=== PATIENT | male | born 1950 | race Caucasian/White ===

== ENCOUNTER 2021-12-10 13:00 | Emergency (ER) | payer MEDICARE, SELFPAY ==
[2021-12-10] VITALS (20 sets, daily range): BP systolic 183–224; BP diastolic 77–96; PULSE 42–57; RESP 13–25; TEMP 36.5; O2SAT 90–98
--- NOTE | 2021-12-10 13:15 | RT.EKG_ITS ---
APPROVED REPORT Exam: Resting ECG Reason for Exam: Burping, R/O CAD Patient Location: E HR:44 bpm ECG Measurements Heart Rate 44 AXIS OK 151 P -14 QRSd 113 QRS 34 QT 510 T 18 QTc 437 Conclusion Sinus bradycardia...rate< [address] elevation, anterior leads...ST >0.15mV in V1-V4 no STEMI, non-diagnostic EKG I have reviewed and interpreted ECG and agree with software generated interpretation.
--- NOTE | 2021-12-10 13:18 | ED.GENADUL_ITS ---
Discharge Plan Disposition Patient Disposition: HOME Condition: Stable Discharge Details Clinical Impression: Abdominal pain Primary Care Provider: Maximiliano Enamorado ED Provider: Kori Cadet Home Meds and New Rx's Prescriptions: Continued sertraline 100 mg tablet 100 mg PO DAILY RF: 0 acebutolol 200 mg capsule 400 mg PO DAILY RF: 0 lisinopril 40 mg tablet 40 mg PO DAILY RF: 0 tamsulosin 0.4 mg capsule 0.4 mg PO DAILY RF: 0 fluticasone propion-salmeterol 100-50 mcg/dose blister with device 1 inh INHALATION DAILY RF: 0 sertraline 100 mg tablet 100 mg PO DAILY RF: 0 fluticasone propion-salmeterol 100-50 mcg/dose blister with device 1 inh INHALATION RF: 0 omeprazole 20 mg Capsule,Delayed Release(Dr/Ec) 20 mg PO DAILY RF: 0 sumatriptan succinate 25 mg Tablet 25 mg PO PRN PRNRF: 0 Discharge Instructions Instructions: Gas and Bloating (ED), Abdominal Pain (ED) Additional Instructions: CT exam shows no evidence for bowel obstruction at this time. You did have some cysts on your liver please follow-up with your primary care provider regarding this. Follow up with primary care provider in 3-5 days. Return to ED sooner if any worsening pain, vomiting, or concerns. Increase oral fluids. Please take Tylenol or Ibuprofen with food every 4-6 hours as needed for pain and swelling. Consider taking an nxwv-sci-shjyozr antacid such as Carafate or similar Referrals: Maximiliano Enamorado [Primary Care Provider] - 3 days Medical Decision Making 71-year-old male presents to the ER with chief complaint of possible bowel obstruction. Patient states last bowel movement was Wednesday and was very small. He reports since then he has had bloating, discomfort and decreased appetite. He reports being unable to eat since Wednesday. He also reports increased belching. He denies any vomiting. He has no history of bowel obstruction no abdominal surgery history. He does have a past medical history of hypertension, GERD. He denies any chest pain or shortness of breath. CT Abd/pelvis W: FINDINGS: ABDOMEN: Lung Bases: Lung normal where visualized. Small hiatal hernia. Liver: Normal density. Multiple cysts. Gallbladder and biliary tract: No radiodense calculus or dilation. Pancreas: Normal density, no abnormal calcifications or inflammatory process. Spleen: Normal. Kidneys: Normal size, contour and axis. No radiodense stones or obstructive uropathy. No masses seen. Adrenal glands: No masses seen. Abdominal Aorta: Abdominal portion non-dilated. PELVIS: Bladder: Mild wall thickening. No calculi.No focal mass. Bowel: No obstruction or bowel wall thickening. Normal quantity of stool. Appendix normal. Peritoneal cavity: No ascites, collection or mesenteric inflammatory response. Bones: Within normal limits for age. Reproductive organs: Mildly enlarged prostate.. Lymph nodes: Unremarkable. Impression: Unremarkable CT scan of the abdomen and pelvis. Discussed results with patient who verbalized understanding. Patient is a GI cocktail which he reports improved his symptoms. I did discuss strict return instructions and to return if any worsening or any further discomfort or vomiting. Instructed to follow-up with PCP. Lab Data Lab results reviewed: Yes I reviewed the patient's lab results. Lab results narrative: Laboratory Tests Range/Units 12/10/21 12/10/21 12/10/21 13:35 13:35 13:35 WBC (4.4-10.8) 10^3/uL 9.28 RBC (4.36-5.78) 10^6/uL 5.10 Hgb (13.5-17.5) g/dL 15.3 Hct (40.0-50.0) % 43.7 MCV (80-95) fL 85.7 MCH (27.0-33.0) pg 30.0 MCHC (32.0-36.0) % 35.0 RDW (11.8-14.1) % 12.2 Plt Count (130-400) 10^3/uL 193 MPV (8.0-11.0) fL 10.8 Immature Gran % 0.3 Neutrophils % 69.7 Lymphocytes % 19.7 Monocytes % 8.1 Eosinophils % 1.9 Basophils % 0.3 Nucleated RBC % % 0 Absolute Neutrophils (1.2-6.7) 10^3/uL 6.46 Absolute Lymphocytes (1.2-3.4) 10^3/uL 1.83 Absolute Monocytes (0.1-0.8) 10^3/uL 0.75 Absolute Eosinophils (0.0-0.7) 10^3/uL 0.18 Absolute Basophils (0.0-0.2) 10^3/uL 0.03 Sodium (136-145) mmol/L 140 Potassium (3.5-5.1) mmol/L 3.5 Chloride (98-107) mmol/L 101 Carbon Dioxide (21.0-32.0) mmol/L 27.0 Anion Gap (3-11) mmol/L 12.0 H BUN (7-18) mg/dL 19 H Creatinine (0.70-1.30) mg/dL 1.1 Estimated GFR/1.73 m2 (mL/min/1.73m2) >= 60.00 Glucose (74-106) mg/dL 96 Calcium (8.5-10.1) mg/dL 9.0 Magnesium (1.8-2.4) mg/dL 1.7 L Total Bilirubin (0.2-1.0) mg/dL 1.4 H AST (15-37) U/L 23 ALT (16-63) U/L 22 Alkaline Phosphatase (46-116) U/L 80 Troponin I (<or=60) ng/L < 50 Total Protein (6.4-8.2) g/dL 7.9 Albumin (3.4-5.0) g/dL 4.3 Lipase (73-393) U/L 57 Urine Color (Yellow) Yellow Urine Clarity (Clear) Clear Urine pH (5-8) 6.5 Ur Specific [place] (1.005-1.025) 1.025 Urine Protein (Negative) mg/dL Trace H Urine Ketones (Negative) mg/dL 15 H Urine Blood (Negative) Trace-intact H Urine Nitrite (Negative) Negative Urine Bilirubin (Negative) Small H Urine Urobilinogen (Up TO 0.2) EU/dL 1.0 H Ur Leukocyte Esterase (Negative) Negative Urine RBC (0-2) HPF 0-2 Urine WBC (0-5) HPF Negative Ur Epithelial Cells (Negative) HPF Rare Urine Crystals (Negative) HPF Negative Urine Bacteria (Negative) HPF Negative Urine Casts (Negative) LPF 0-2 Hyaline Urine Mucus (Negative) Moderate Ur Culture Indicated? No Urine Glucose (Negative) mg/dL Negative HPI General Mode of arrival: ambulatory . Date/Time Provider Initiated Documentation: 12/10/21 13:17 . Limitations to Documentation: no limitations . Information obtained by: patient, RN notes reviewed and old records reviewed . HPI Narrative: 71-year-old male presents to the ER with chief complaint of possible bowel obstruction. Patient states last bowel movement was Wednesday and was very small. He reports since then he has had bloating, discomfort and decreased appetite. He reports being unable to eat since Wednesday. He also reports increased belching. He denies any vomiting. He has no history of bowel obstruction no abdominal surgery history. He does have a past medical history of hypertension, GERD. He denies any chest pain or shortness of breath. Related Data Home Medications Medication Instructions Recorded Confirmed acebutolol 400 mg PO DAILY 12/10/21 12/10/21 fluticasone propion-salmeterol 1 inh INHALATION 12/10/21 fluticasone propion-salmeterol 1 inh INHALATION DAILY 12/10/21 12/10/21 lisinopril 40 mg PO DAILY 12/10/21 12/10/21 omeprazole 20 mg PO DAILY 12/10/21 12/10/21 sertraline 100 mg PO DAILY 12/10/21 12/10/21 sertraline 100 mg PO DAILY 12/10/21 12/10/21 sumatriptan succinate 25 mg PO PRN PRN 12/10/21 12/10/21 tamsulosin 0.4 mg PO DAILY 12/10/21 12/10/21 Allergies Allergy/AdvReac Type Severity Reaction Status Date / Time No Known Allergies Allergy Unverified 12/10/21 13:12 General Stated Complaint: Abd Prob AMRITA: 3 Review of Systems All systems reviewed & are unremarkable except as noted in HPI and below Gastrointestinal Gastrointestinal: Reports belching, Reports bloating, Reports constipation, Denies nausea and Denies vomiting PFSH All Active Problems (Updated 12/10/21 @ 15:40 by Kori Cadet) Abdominal pain (Acute) Social History Smoking/Tobacco Use Status: Former Tobacco Use Smoking risk assessment performed?: Yes Alcohol Intake: current Alcohol Intake frequency: holidays/special occasions only Alcohol type: hard liquor Drug use: Never Substance use type: does not use Do you feel safe at home: Yes Do you feel safe in your relationship?: Yes Exam Narrative Exam Narrative: Constitutional: Alert and oriented x3. Appears stated age. Normal body habitus. Head: Normocephalic, no trauma. Eyes: Pupils PERRL, Red reflex noted, EOM's intact. Eyelids symmetrical without lesions, discharge, or swelling. ENT: Bilateral TM's WNL, External ear normal to inspection, no mastoid TTP, swelling, or erythema, Nasal turbinates WNL, no nasal discharge. Normal dentition, Posterior pharynx WNL, no exudate. Chest: RRR, Normal S1, S2, distal pulses intact. Resp: Lungs clear to auscultation bilaterally, no wheezes, rales, or rhonchi. Abdomen: Soft, non-distended, Normoactive bowel sounds all 4 quads. Musculoskeletal: Normal gait, 5/5 strength to all four extremities. Skin: No suspicious rashes or lesions. Capillary refill less than 2 sec. Neurologic: Cranial nerves II-XII intact. Alert and oriented x 3. Motor: No deficits noted. Sensory: Intact bilaterally all 4 extremities. Reflexes: DTR's intact bilaterally.. Hematologic/Lymphatic: No ecchymosis, no lymphadenopathy. Course Vital Signs Vital signs: Vital Signs Temperature 36.5 C 12/10/21 13:07 Pulse 51 L 12/10/21 13:07 Respiratory Rate 16 12/10/21 13:07 Blood Pressure 224/96 H 12/10/21 13:07 Pulse Oximetry 98 12/10/21 13:07 Temperature 36.5 C 12/10/21 13:07 Temperature Source Temporal Artery Scan 12/10/21 13:07 Pulse 51 L 12/10/21 13:07 Respiratory Rate 16 12/10/21 13:07 Respiratory Effort Non-Labored 12/10/21 13:12 Blood Pressure 224/96 H 12/10/21 13:07 Blood Pressure Position Sitting 12/10/21 13:07 Pulse Oximetry 98 12/10/21 13:07 Oxygen Delivery Method Room Air 12/10/21 13:07 Oxygen Flow Rate 0 12/10/21 13:07 Pain Level 0 12/10/21 13:07 PAWSS Have you Been Recently Intoxicated or Drunk Within the Last 30 days?: No Have you Ever Experienced Previous Episodes of Alcohol Withdrawal?: No Have you ever Experienced Withdrawal Seizures?: No Have you ever Experienced Delirium Tremens(DT)s?: No Have you ever undergone Alcohol Rehabilitation Treatment (i.e, inpt ot outpatient treatment programs)?: No Have you ever Experienced Blackouts?: No Have you ever Combined Alcohol with other Downers within the last 90 days?: No Have you ever Combined Alcohol with any other Substance of Abuse during the last 90 days?: No Positive Blood Alcohol level on Presentation? [PCS.BAL]: No Evidence of Increased Autonomic Activity (i.e. HR>120, tremor, sweating, agitation, nausea)?: No Result: 0
--- NOTE | 2021-12-10 13:30 | DI.CT_ITS ---
Exam(s) CT ABDOMEN PELVIS W EXAM: CT ABDOMEN PELVIS W CLINICAL HISTORY: Bloating, Constipation, r/O SBO. TECHNIQUE: Imaging Protocol: Axial computed tomography images with coronal and sagittal reformatted images were created and reviewed CONTRAST MATERIAL: Intravenous: Omnipaque 350 Contrast volume:100 ml Oral: no COMPARISON: No exams were available for comparison FINDINGS: ABDOMEN: Lung Bases: Lung normal where visualized. Small hiatal hernia. Liver: Normal density. Multiple cysts. Gallbladder and biliary tract: No radiodense calculus or dilation. Pancreas: Normal density, no abnormal calcifications or inflammatory process. Spleen: Normal. Kidneys: Normal size, contour and axis. No radiodense stones or obstructive uropathy. No masses seen. Adrenal glands: No masses seen. Abdominal Aorta: Abdominal portion non-dilated. PELVIS: Bladder: Mild wall thickening. No calculi.No focal mass. Bowel: No obstruction or bowel wall thickening. Normal quantity of stool. Appendix normal. Peritoneal cavity: No ascites, collection or mesenteric inflammatory response. Bones: Within normal limits for age. Reproductive organs: Mildly enlarged prostate.. Lymph nodes: Unremarkable. Impression: Unremarkable CT scan of the abdomen and pelvis. RADIATION DOSE DELIVERED: 1,185.12mGy.cm Total DLP DATA REPOSITORY: All CT scans at this facility are submitted to the National Radiology Data Registry (NRDR) Dose Index Registry (DIR) with the [employer] ([employer]). RADIATION OPTIMIZATION: All CT scans at this facility use at least one of these dose optimization te chniques: automated exposure control; mA and/or kV adjustment per patient size (includes targeted exa ms where dose is matched to clinical indication); or iterative reconstruction.
[2021-12-10 13:49] LABS: Abs Immature Grans 0.03 10^3/uL (0.0-0.06); Absolute Basophil Count 0.03 10^3/uL (0.0-0.2); Absolute Eosinophil Count 0.18 10^3/uL (0.0-0.7); Absolute Lymphocyte Count 1.83 10^3/uL (1.2-3.4); Absolute Monocyte Count 0.75 10^3/uL (0.1-0.8); Absolute Neutrophil Count 6.46 10^3/uL (1.2-6.7); Basophils % 0.3; Eosinophils % 1.9; HCT 43.7 % (40.0-50.0); HGB 15.3 g/dL (13.5-17.5); Immature Grans % 0.3; Lymphocytes % 19.7; MCV 85.7 fL (80-95); MPV 10.8 fL (8.0-11.0); Monocytes % 8.1; Neutrophils % 69.7; Nucleated RBC 0 %; Platelet Count 193 10^3/uL (130-400); RDW 12.2 % (11.8-14.1); RDW-SD 38.3 fL; WBC 9.28 10^3/uL (4.4-10.8)
[2021-12-10 13:56] LABS: Bilirubin Small (Negative); Blood Trace-intact (Negative); Clarity Clear (Clear); Glucose Negative (Negative); Ketones 15 mg/dL (Negative); Leukocyte Esterase Negative (Negative); Nitrite Negative (Negative); Specific Gravity 1.025 (1.005-1.025); pH 6.5 (5-8)
[2021-12-10 14:09] LABS: ALT 22 U/L (16-63); AST 23 U/L (15-37); Albumin 4.3 g/dL (3.4-5.0); Alkaline Phosphatase 80 U/L (46-116); BUN 19 mg/dL (7-18); Bilirubin, Total 1.4 mg/dL (0.2-1.0); CREATININE 1.1 mg/dL (0.70-1.30); Chloride 101 mmol/L (98-107); Glucose 96 mg/dL (74-106); Lipase 57 U/L (73-393); Magnesium 1.7 mg/dL (1.8-2.4); Potassium 3.5 mmol/L (3.5-5.1); Sodium 140 mmol/L (136-145); Total Protein 7.9 g/dL (6.4-8.2); Troponin I < 50 ng/L (<or=60)
[2021-12-10 14:24] LABS: Bacteria Negative HPF (Negative); C & S Indicated? No; Casts 0-2 Hyaline LPF (Negative); Crystals Negative HPF (Negative); Epithelial Cells Rare HPF (Negative); Mucus Moderate (Negative); RBC 0-2 HPF (0-2); WBC Negative HPF (0-5)
[2021-12-10] MEDS: Normal Saline 1,000 ML 1000 ML IV (14:26)
[2021-12-10] MEDS: Omnipaque 350 MG/ML 100 ML BTL IJ (14:42)
== END 2021-12-10 15:45 | disposition home or self-care (01) ==
PROVIDERS: Emergency Provider Registered Nurse Emergency; PCP Internal Medicine
DX: R10.9 Unspecified abdominal pain (principal); R14.0 Abdominal distension (gaseous); K76.89 Other specified diseases of liver
CPT/HCPCS: 80053; 83690; 93005; 96360; 99285; 74177; 81003; 81015; 83735; 84484; 85025; 93010; 99283; J3490